=== PATIENT | female | born 1940 | race Caucasian/White ===

== ENCOUNTER → 2017-09-23 | Outpatient (CLI) | payer BC ==
[~2017-09-23] VITALS: Ht 167.6 cm; Wt 67.0 kg
[~2017-09-23] MED LIST: CAL-CITRATE PL1 EACH PO; COMBIGAN O20 DROP/5 BOTH EYES; DAILY VALUE1 EACH PO; LATANOPROST2.5 ML BOTH EYES; LIPITOR10 MG PO; SYNTHROID100 MCG PO; TRAVATAN Z5 ML BOTH EYES
[2017-09-23 07:04] VITALS: BP 138/74
== END | disposition home or self-care (01) ==
LOC: IVINF 06:47
DX: M81.0 Age-related osteoporosis without current pathological fracture (principal)
CPT/HCPCS: 96365; J3489